=== PATIENT | female | born 1965 | race Two or more races ===

== ENCOUNTER 2017-12-08 08:02 | Day surgery (SDC) | payer OTHER ==
[2017-12-08] MEDS ORDERED: MIDAZOLAM 1 MG/ML 2 ML INJ ×2 (11:27)
[2017-12-08] MEDS ORDERED: FENTAnyl 50 MCG/ML VIAL ×2 (11:28)
== END 2017-12-08 12:07 | disposition home or self-care (01) ==
LOC: GIL 08:02
DX: Z12.11 Encounter for screening for malignant neoplasm of colon (principal); K64.8 Other hemorrhoids
CPT/HCPCS: 45378